=== PATIENT | male | born 1940 | race Caucasian/White ===

== ENCOUNTER → 2023-07-02 | Outpatient (CLI) | payer OTHER ==
[~2023-07-02] MED LIST: ZESTORETIC 20-121 E1 PO
== END ==
LOC: LAB SHORT 11:41 → LAB 11:41
DX: L82.1 Other seborrheic keratosis (principal)
CPT/HCPCS: 88305

== ENCOUNTER 2024-12-16 06:06 | Day surgery (SDC) | payer OTHER ==
[~2024-12-16] VITALS: Ht 170.2 cm; Wt 99.6 kg
[~2024-12-16 06:06] MED LIST changes: +Balanced Salt Epinephrine Irrigation Solution 500 mL IR SCH; +Moxifloxacin HCL 0.5 MG/0.1 ML 0.4MLSYR LEFTEYE SCH; +Ondansetron 4 MG SoluTab MM PRN; +PHENYLEPHRINE\\TROPICAMIDE\\TETRACAINE OPHTHALMIC DILATING SOLN LEFTEYE PRN; +Povidone-Iodine 450 DROP/30 ML Solution LEFTEYE SCH; +Povidone-Iodine 450 DROP/30 ML Solution ONE; +Tetracaine HCl/Pf 0.5% Opth Soln 4 ml ONE; +Triamcinolone Inj Susp 40 MG / ML 1ML Vial INJ SCH; +diazePAM 2 MG,diazePAM 5 MG PO SCH
[2024-12-16] MEDS ORDERED: LIPITOR80 MG PO (06:39)
[2024-12-16] MEDS ORDERED: METOPROLOL SUCC25 MG PO (06:40)
[2024-12-16] MEDS ORDERED: EUTHYROX50 MC1 PO (06:41)
[2024-12-16] MEDS ORDERED: ERGO400 (06:42)
[2024-12-16] MEDS ORDERED: Aspir 8181 MG PO (06:42)
[2024-12-16] MEDS ORDERED: Triamcinolone Inj Susp 40 MG / ML 1ML Vial ONE (06:49)
[2024-12-16] MEDS ORDERED: Tetracaine HCl 0.5% Opth Soln 15 ml LEFTEYE ONE (07:29)
--- NOTE | 2024-12-16 07:32 | NUR ---
12/16/24 0732 Russell De Leon N 135/89 97 10L blow by O2 [id number]
[2024-12-16 07:59] VITALS: BP 127/76
== END 2024-12-16 08:22 | disposition home or self-care (01) ==
LOC: ORSCSDS 06:06
PROVIDERS: Ophthalmology
PROC: 08RK3JZ Replacement of Left Lens with Synthetic Substitute, Percutaneous Approach (ICD-10-PCS; principal; 2024-12-16 07:30)
DX: E11.36 Type 2 diabetes mellitus with diabetic cataract (principal); H25.813 Combined forms of age-related cataract, bilateral; H25.12 Age-related nuclear cataract, left eye; H52.202 Unspecified astigmatism, left eye; I10 Essential (primary) hypertension; H40.059 Ocular hypertension, unspecified eye; Z86.73 Personal history of transient ischemic attack (TIA), and cerebral infarction without residual deficits; Z79.82 Long term (current) use of aspirin; Z79.84 Long term (current) use of oral hypoglycemic drugs; Z79.899 Other long term (current) drug therapy
CPT/HCPCS: A9270; J2003; J3301; V2632